=== PATIENT | female | born 2000 | race Caucasian/White ===

== ENCOUNTER 2023-01-15 12:44 | Emergency (ER) | payer MEDICAID, SELFPAY ==
[2023-01-15 12:49] VITALS: BP 126/85; PULSE 57; RESP 16; O2SAT 98; BMI 20.5
--- NOTE | 2023-01-15 13:02 | W.ED.ALLEREA ---
HPI - Allergic Reaction General: Chief complaint: Allergic Reaction Stated complaint: sob, allergic reaction Time Seen by Provider: 01/15/23 12:49 History of Present Illness: HPI narrative: Patient is a 22-year-old female comes to the ED with an allergic reaction. Patient states she is allergic to mushrooms and accidentally ate a mushroom approximately an hour ago. She is complaining of having shortness of breath, wheezing, throat tightness and throat itching. Patient does not have an EpiPen at home and did not take any Benadryl before coming to the ED. Associated symptoms: Deny abdominal pain, nausea or vomiting Review of Systems Const: Denies: fever(s), chills or fatigue Eyes: Denies: change in vision or eye discomfort ENMT: Denies: throat pain, odynophagia, nasal discharge or nasal congestion Card: Denies: chest pain, palpitations, edema, swelling of feet/ankles, dyspnea on exertion or orthopnea Resp: Denies: dyspnea, productive cough or non-productive cough GI: Denies: abdominal pain, nausea, vomiting, diarrhea, constipation or hematochezia : Denies: flank pain, dysuria or hematuria Musc: Denies: neck pain, back pain or extremity swelling Skin/Breast: Denies: rash or new lesions Neuro: Denies: headache(s), numbness in extremities or weakness in extremities All/Imm: Reports: throat swelling, acute wheezing and food intolerance (Allergic to mushrooms) COUNTS INCLUDE 234 BEDS AT THE [facility] ED PFSH: Medical History (Updated 01/15/23 @ 16:12 by CRISTIANA Black) No pertinent family history Surgical History (Updated 01/15/23 @ 16:12 by CRISTIANA Black) No pertinent past surgical history Physical Exam Const: COMMON NORMALS: no acute distress, patient oriented x3 and alert OTHER: Patient's voice is raspy and soft. No visible lip or tongue swelling noted. HENMT: COMMON NORMALS: normocephalic HEAD & SCALP: normocephalic MOUTH: Normal oral and palatal mucosa present, lip normal and tongue normal THROAT: posterior oropharynx normal and uvula midline Neck/C-Spine: COMMON NORMALS: supple GENERAL: Yes normal visual inspection Resp: COMMON NORMALS: normal respiratory effort, No retractions, No use of accessory muscles and clear to auscultation bilaterally AUSCULTATION: clear to auscultation bilaterally Cardio: COMMON NORMALS: regular rate, regular rhythm, S1 normal heart sound present, S2 normal heart sound present, No gallops present (Cardio), No clicks present (Cardio), No murmurs present (Cardio) and Peripheral pulses 2+ throughout RATE: regular rate RHYTHM: regular rhythm HEART SOUNDS: S1 normal heart sound present and S2 normal heart sound present PERIPHERAL PULSES: Peripheral pulses 2+ throughout GI: COMMON NORMALS: Normal to inspection, nondistended, normoactive bowel sounds present, Soft to palpation, non-tender and no masses PALPATION: Yes Soft to palpation : COMMON NORMALS: Yes no CVA tenderness BLADDER/KIDNEY EXAM: Yes no CVA tenderness Back/Pelvis: COMMON NORMALS: no CVA tenderness Extremity: COMMON NORMALS: normal to inspection Neuro: COMMON NORMALS: patient oriented x3 SENSORIUM/ORIENTATION: Yes alert GAIT: Yes Normal gait present Skin: COMMON NORMALS: no rashes or lesions noted GENERAL SKIN EXAM: no rashes or lesions noted and dry skin Course Vital Signs: Vital signs: Vital Signs Pulse Rate 72 01/15/23 13:43 Respiratory Rate 19 H 01/15/23 13:32 Blood Pressure 130/83 01/15/23 13:32 Pulse Oximetry 98 01/15/23 13:43 Oxygen Delivery Me thod Room Air 01/15/23 13:43 MDM - Allergic Reaction Medical Decision Making Patient is a 22-year-old female comes to the ED with an allergic reaction. Patient states she is allergic to mushrooms and accidentally ate a mushroom approximately an hour ago. She is complaining of having shortness of breath, wheezing, throat tightness and throat itching. Patient does not have an EpiPen at home and did not take any Benadryl before coming to the ED. vitals are stable. Patient's voice is soft and raspy. Rest of exam is benign and patient has no lip or tongue swelling noted. Patient was given dose of epi, Solu-Medrol, Benadryl and Pepcid. Symptoms resolved after meds. Patient was watched for over an hour and she had no recurrent symptoms. She was stable for discharge home and diagnosed with allergic reaction. She was sent home with a prescription for an EpiPen and a prescription for prednisone. Told to follow-up with her PCP in the next week for reevaluation. Return to ED precautions given. Patient understood and agreed with plan. Discharge Plan Discharge Patient Disposition: Home Clinical Impression: Allergic reaction Qualifiers: Encounter type: initial encounter Qualified Code(s): T78.40XA - Allergy, unspecified, initial encounter Condition: Stable Prescriptions: New prednisone 20 mg tablet 20 mg PO BID 3 Days Qty: 6 0RF EpiPen 2-Tim 0.3 mg/0.3 mL auto-injector 0.3 mg IM Q20M PRN (Reason: anaphylaxis) Qty: 2 0RF Rx Instructions: do not exceed 3 doses per episode No Action Sprintec (28) 0.25-35 mg-mcg tablet 1 tab PO DAILY sertraline 50 mg tablet 50 mg PO DAILY Discharge Orders: Discharge ED (Routine); Ordered 01/15/23 Ordered By: José Miguel Harding Referrals: Clara Junior PA [Primary Care Provider] - Discharge Diet: Regular Discharge Activity: Increase activity as tolerated Patient Instructions: Allergic Reaction Activity Restrictions/Additional Instructions: Follow-up with medical provider as directed. Take medications as prescribed. You can take [id number] Benadryl as needed as well to help with any allergic reaction. Return to the ER or your medical provider if condition worsens. Please read and understand discharge instructions. Thank you for choosing [facility] for your healthcare needs today. Please realize this is an emergency room and that we are providing you with a medical screening exam and this may not be complete and all inclusive of all the testing and or work up that you may need to determine your ailment or severity of your illness. It is very important that you follow up as instructed or that you return to the Emergency Department should you have concerns or if your condition changes or worsens in any way. Coding Level of Care Code ED Accounting Associate for Dejon Siegel
[2023-01-15] MEDS: EPINEPHrine 1 mg/mL INJ 0.3 MG IM (13:09)
[2023-01-15] MEDS: diphenhydrAMINE 50 mg/mL SDV 1mL IVP (13:19)
[2023-01-15] MEDS: famotidine 20 mg/2 mL INJ 40 MG IVP (13:21)
[2023-01-15 13:32] VITALS: BP 130/83; PULSE 69; RESP 19; O2SAT 99
[2023-01-15 13:43] VITALS: PULSE 72; O2SAT 98
== END 2023-01-15 15:03 | disposition home or self-care (01) ==
PROVIDERS: Emergency Provider Physician Assistant; PCP Physician Assistant
DX: T78.40XA Allergy, unspecified, initial encounter (principal); X58.XXXA Exposure to other specified factors, initial encounter
CPT/HCPCS: 96372; 96374; 96375; 99284; J0171; J1200; J2930; J3490

== ENCOUNTER 2023-03-08 01:38 | Emergency (ER) | payer MEDICAID, SELFPAY ==
[2023-03-08 01:40] VITALS: BMI 18.8
[2023-03-08 01:43] VITALS: BP 144/66; PULSE 77; RESP 16; TEMP 37.1; O2SAT 97
[2023-03-08 02:18] VITALS: BP 144/66; PULSE 77; RESP 16; TEMP 37.1; O2SAT 97
--- NOTE | 2023-03-08 02:49 | W.ED.ANXIETY ---
HPI - Anxiety General: Chief Complaint: Anxiety Stated Complaint: anxiety, pseudo-seizure Time Seen by Provider: 03/08/23 01:45 History of Present Illness: 22-year-old female with a history of anxiety and pseudoseizure. She relates this to PTSD. She had an episode tonight that was somewhat prolonged, although she states that her friends/roommates called the ambulance too soon. She does not remember the event, a friend with her states that she convulsed for approximately 3 minutes before 911 was called. Convulsions were resolving by the time EMS arrived. In route, she was awake, alert, and talking without a postictal state. Associated symptoms: Deny chest pain, fever(s), headache(s) or vomiting Review of Systems Const: Denies: fever(s) Eyes: Denies: change in vision ENMT: Denies: throat pain Card: Denies: chest pain Resp: Denies: dyspnea GI: Denies: abdominal pain, vomiting or diarrhea Skin/Breast: Denies: rash Neuro: Denies: headache(s) Psych: Reports: anxiety PFSH ED PFSH: Medical History No pertinent family history Surgical History No pertinent past surgical history Female Reproductive History: Date of last menstrual period: 03/07/23 Physical Exam Const: COMMON NORMALS: no acute distress GENERAL APPEARANCE: cooperative; not ill appearing and not frail appearing HENMT: COMMON NORMALS: normocephalic, atraumatic and Normal external nose present HEAD & SCALP: normocephalic and atraumatic FACE & SINUS: normal facial exam and face symmetric NOSE: Normal external nose present Eye: COMMON NORMALS: Equal, round and reactive pupils present and EOMs intact bilaterally PUPIL: Yes Equal, round and reactive pupils present Neck/C-Spine: GENERAL: Yes trachea midline Chest: CHEST: Yes Symmetrical chest wall rise Resp: COMMON NORMALS: normal respiratory effort, No retractions, No use of accessory muscles and clear to auscultation bilaterally AUSCULTATION: clear to auscultation bilaterally Cardio: COMMON NORMALS: regular rate and regular rhythm RATE: regular rate RHYTHM: regular rhythm GI: COMMON NORMALS: Normal to inspection, nondistended, normoactive bowel sounds present Extremity: COMMON NORMALS: no pedal edema Neuro: [place] COMA SCALE: document GCS findings [place] coma scale eye opening: Spontaneous [place] coma scale verbal response: Orientated [place] coma scale motor response: Obey commands [place] coma scale total score: 15 CRANIAL NERVES: Yes CN normal except as noted COORDINATION/BALANCE: [id number] test normal and [id number] test normal SPEECH: speech normal GAIT: Yes Normal gait present SENSORY EXAM: Yes extremities (intact) MOTOR EXAM: Pronator motor function not present and Normal motor muscle tone present throughout COORDINATION: [id number] test normal and [id number] test normal Psych: COMMON NORMALS: speech normal SPEECH: Yes normal speech Skin: COMMON NORMALS: no rashes or lesions noted GENERAL SKIN EXAM: no rashes or lesions noted Course Vital Signs: Vital signs: Vital Signs Temperature 98.7 F 03/08/23 02:18 Pulse Rate 77 03/08/23 02:18 Respiratory Rate 16 03/08/23 02:18 Blood Pressure 144/66 03/08/23 02:18 Pulse Oximetry 97 03/08/23 02:18 MDM - Anxiety Medical Decision Making The patient is fully recovered on my exam. She did not wish to come to the hospital for a pseudoseizure of such short duration, as she knows unless there is injury during the seizure, they do not pose a great risk to her health. She has walked in the ER. She has eaten. Her mental status is normal. She would like to go home. She will be allowed discharge. No further work-up needed. Discharge Plan Discharge Patient Disposition: Home Clinical Impression: Psychogenic nonepileptic seizure Condition: Stable Prescriptions: No Action Sprintec (28) 0.25-35 mg-mcg tablet 1 tab PO DAILY sertraline 50 mg tablet 50 mg PO DAILY EpiPen 2-Itm 0.3 mg/0.3 mL auto-injector 0.3 mg IM Q20M PRN (Reason: anaphylaxis) Qty: 2 0RF Rx Instructions: do not exceed 3 doses per episode Discharge Orders: Discharge ED (Routine); Ordered 03/08/23 Ordered By: Sergey Guzman Referrals: Clara Junior PA [Primary Care Provider] - 1-3 days Coding Level of Care Code ED Meter Shop Superintendent for g Robbin
== END 2023-03-08 02:19 | disposition home or self-care (01) ==
PROVIDERS: Emergency Provider Emergency Medicine; PCP Physician Assistant
DX: R56.9 Unspecified convulsions (principal)
CPT/HCPCS: 99282